=== PATIENT | male | born 1980 | race African-American/Black ===

== ENCOUNTER 2020-03-05 15:21 | Emergency (ER) | payer MEDICAID ==
[~2020-03-05] VITALS: Ht 182.9 cm; Wt 84.0 kg
[2020-03-05] MEDS ORDERED: HYDROCODONE/ACETAMINOPHEN 5/325MG TABLET PO STA (16:06)
[2020-03-05] MEDS ORDERED: CLONIDINE 0.1MG TABLET PO ONE (16:15)
[2020-03-05 16:39] LABS: BASOPHILS % 0.5 % (0.0-2.0); EOSINOPHILS % 2.6 % (0.0-5.0); HEMATOCRIT. 32.1 % (42.0-52.0); HEMOGLOBIN. 10.8 g/dL (14.0-18.0); LYMPHOCYTES % 31.3 % (20.0-50.0); MEAN CORPUSCULAR HEMOGLOBIN 29.9 pg (28.0-32.0); MEAN CORPUSCULAR VOLUME 88.6 fL (80.0-94.0); MEAN PLATELET VOLUME 7.4 fl (7.4-10.4); MONOCYTES % 5.4 % (2.0-8.0); NEUTROPHILS % 60.2 % (40.0-76.0); PLATELET 340 x1000/uL (130-400); RED BLOOD CELL COUNT 3.62 mill/uL (4.7-6.1); RED CELL DISTRIBUTION WIDTH 17.8 % (11.6-14.6)
[2020-03-05 16:40] LABS: CHLORIDE 110 mEq/L (98-107)
[2020-03-05 16:43] LABS: PROTHROMBIN TIME 10.3 sec (9.6-11.0)
[2020-03-05 17:45] VITALS: BP 167/96
[2020-03-05] MEDS ORDERED: KETOROLAC 30MG/ML VIAL IV ONE (17:45)
== END 2020-03-05 18:00 | disposition home or self-care (01) ==
LOC: ER 15:21 → CANBEDREQ 23:35
DX: M54.2 Cervicalgia (principal); M54.5 Low back pain; M25.511 Pain in right shoulder; E11.22 Type 2 diabetes mellitus with diabetic chronic kidney disease; I12.0 Hypertensive chronic kidney disease with stage 5 chronic kidney disease or end stage renal disease; N18.6 End stage renal disease; D63.1 Anemia in chronic kidney disease; Z99.2 Dependence on renal dialysis; V43.62XA Car passenger injured in collision with other type car in traffic accident, initial encounter; Y93.89 Activity, other specified; Y92.488 Other paved roadways as the place of occurrence of the external cause
CPT/HCPCS: 36415; 71045; 73030; 80053; 85025; 85610; 96374; 99284; J1885